=== PATIENT | female | born 1970 | race Caucasian/White ===

== ENCOUNTER 2018-09-25 00:52 | Outpatient (CLI) | payer BC, SELFPAY ==
--- NOTE | 2018-09-25 07:34 | DI.MAMMO_ITS ---
SYMPTOM/DIAGNOSIS: SCREENING MAMMOGRAMS: Mammograms were interpreted according to the usual protocol including computer analysis with CAD system, tomosynthesis and C view imaging. Comparison with prior examinations. No suspicious masses or microcalcifications are seen. There is no definite evidence of malignancy. Breast density C. There is asymmetric breast tissue in the medial left breast which appears more prominent compared to prior examinations. This is best appreciated on the cranial caudad view. Spot compression views recommended. Ultrasound may be indicated at that time. IMPRESSION: Additional views of the left breast as described above. Category 0, breast density C. [facility] ASSESSMENT OF FINDINGS: Incomplete: Needs additional imaging evaluation. Category 0. Patient will receive a letter notifying them of these results. Bi-RADS category C. The breasts are heterogeneously dense, which may obscure small masses.
== END 2018-09-25 01:12 ==
PROVIDERS: PCP Neuromusculoskeletal Medicine & OMM; Visit Provider Advanced Practice Midwife
DX: Z12.31 Encounter for screening mammogram for malignant neoplasm of breast (principal); R92.8 Other abnormal and inconclusive findings on diagnostic imaging of breast
CPT/HCPCS: 77063; 77067

== ENCOUNTER 2018-10-03 00:55 | Outpatient (CLI) | payer BC, SELFPAY ==
--- NOTE | 2018-10-03 09:05 | DI.MAMMO_ITS ---
SYMPTOM/DIAGNOSIS: F/U MAMMO, ASYMMETRIC BREAST TISSUE MEDIAL LT BREAST LEFT BREAST ADDITIONAL VIEWS: Additional images are interpreted according to the usual protocol including tomosynthesis and 2D imaging. A spot compression view was performed of the medial left breast for an area of asymmetric tissue. No persistent abnormality is seen on the additional view performed. The findings are consistent with overlying fibroglandular tissue. IMPRESSION: Category 1, negative mammogram. Yearly screening mammography is recommended. [facility] ASSESSMENT OF FINDINGS: Negative. Category 1. Patient will receive a letter notifying them of these results. Bi-RADS category C. The breasts are heterogeneously dense, which may obscure small masses.
== END 2018-10-03 01:15 ==
PROVIDERS: PCP Neuromusculoskeletal Medicine & OMM; Visit Provider Advanced Practice Midwife
DX: Z12.31 Encounter for screening mammogram for malignant neoplasm of breast (principal); R92.8 Other abnormal and inconclusive findings on diagnostic imaging of breast; N64.59 Other signs and symptoms in breast
CPT/HCPCS: 77063; 77067

== ENCOUNTER 2020-08-29 04:20 | Outpatient (CLI) | payer BC, SELFPAY ==
--- NOTE | 2020-08-29 | DI.MAMMO_ITS ---
Exam(s) MAMMO SCREENING EXAM: MAMMO SCREENING CLINICAL HISTORY: SCREENING, Z12.31 TECHNIQUE: Mammograms were interpreted according to the usual protocol including computer analysis w [employer] CAD system, tomosynthesis and C-view imaging. COMPARISON: 2011 through 2018 FINDINGS: The breasts are composed of heterogeneously dense fibroglandular densities, Breast Density category C . No suspicious masses or suspicious microcalcifications are seen. No skin thickening or abnormal axillary lymph nodes are seen. There has been no significant change from prior exams. IMPRESSION: BI-RADS Category 1, Negative mammogram. Yearly screening mammography is recommended. Breast Density Category C, heterogeneously Dense. The mammogram demonstrates the patient's breast tissue is dense. Dense breast tissue is very common a nd is not abnormal but dense breast tissue can make it harder to find cancer on a mammogram. Also, de nse breast tissue may increase breast cancer risk. This information about the result of the mammogram report was provided to the patient to raise their awareness. Use this report when you speak with the patient about their risks for breast cancer, which includes their family history. At that time, you may recommend additional screening tests (Ultrasound or MRI) as they might be useful based on their r isk. A negative radiographic report should not delay biopsy if a dominant or clinically suspicious mass is present. Up to ten percent of cancers are not identified on mammography. A negative report may reinforce clinical impression. Adenosis and dense breasts may obscure an underlying neoplasm. False positive reports average 6 to 10%.
== END 2020-08-29 04:40 ==
PROVIDERS: PCP Neuromusculoskeletal Medicine & OMM; Visit Provider Nurse Practitioner Women's Health
DX: Z12.31 Encounter for screening mammogram for malignant neoplasm of breast (principal)
CPT/HCPCS: 77063; 77067

== ENCOUNTER → 2021-11-05 00:20 | Outpatient (CLI) | payer BC, SELFPAY ==
--- NOTE | 2021-11-05 | DI.US_ITS ---
Exam(s) US PELVIS TRANSVAGINAL EXAM: US PELVIS TRANSVAGINAL CLINICAL HISTORY: DYSMENORRHEA,N94.6 TECHNIQUE: Ultrasound of the pelvis was performed both transabdominal and transvaginal. COMPARISON: US PELVIS TRANSVAG from 09/04/2015 FINDINGS: UTERUS: Measures 5 cm length x 3.8 cm AP x 3.4 cm wide. There are no uterine fibroids. Endometrial thickness measures 3.7 mm. There is small amount of fluid in the fundus aspect of the endometrial canal. CERVIX: Small nabothian cysts noted. RIGHT OVARY: Measures 0.7 x 2.1 x 1.2 cm Follicular cysts measuring up to 11 millimeters LEFT OVARY: Measures 0.3 x 1.9 x 0.8 cm No significant cysts nor masses evident in the left ovary. CUL-DE-SAC: No free fluid evident. IMPRESSION: 1. Small amount of fluid in the fundal aspect of the endometrial canal. Endometrial stripe thickness below this level is 3-4 millimeters. There are no uterine fibroids evident. 2. There is a cyst in the right ovary measuring 1.1 cm probably follicular. 3. No free fluid evident in the adnexal regions and cul-de-sac. DATA REPOSITORY:
--- NOTE | 2021-11-05 | DI.MAMMO_ITS ---
Exam(s) MAMMO SCREENING EXAM: MAMMO SCREENING CLINICAL HISTORY: SCREENING, Z12.31. TECHNIQUE: Bilateral full field digital CC and MLO mammographic images were obtained with 3D tomosyn thesis and utilizing computer aided detection (CAD). COMPARISON: Prior mammograms were reviewed, the most recent being August 2020. FINDINGS: The fibroglandular tissue pattern is again noted be moderately dense. This somewhat decreases the se nsitivity mammogram for finding hidden underlying lesions. There are no new obvious spiculated masses nor malignant appearing microcalcification groups. There is no significant architectural distortion nor skin thickening-retraction. IMPRESSION: Dense bilateral fibroglandular tissue no. No obvious radiographic evidence of malignancy BI-RADS Category 2 - Benign Findings Breast Density - Category C - Heterogeneously dense Breast density Category C or D implies that the patient has dense breast tissue. Dense breast tissue can make it harder to find cancer on a mammogram. Dense breast tissue is also associated with an incr eased risk of breast cancer. This information about the result of the mammogram report was provided to the patient to raise their awareness. Use this report when you speak with the patient about their risks for breast cancer, which includes their family history. At that time, you may recommend additional screening tests (Ultrasoun d or MRI) as these tests may add significant information. A negative radiographic report should not delay biopsy if a dominant or clinically suspicious mass is present. Up to ten percent of cancers are not identified on mammography. A negative report may reinforce clinical impression. Adenosis and dense breasts may obscure an underlying neoplasm. False positive reports average 6 to 10%. Patient will receive a letter notifying them of these results.
--- OUTSIDE RECORDS SUMMARY | 2021-11-05 00:22 | XMS_ITS | Clinical Summary ---
:1970 Author Organization [facility] Address [address] [place] [address] Care Team Providers Name Role Phone Thor Middleton DO Primary Care Provider Allergies Active Allergy Reactions Severity Noted Date Comments Sulfa (Sulfonamide Antibiotics) Swelling 6 Swelling of lips Medications Medication Sig Dispensed Refills Start Date End Date Status cholecalciferol, Vitamin Take 1,000 0 Active D3, 1,000 unit tablet Units by mouth daily. cyanocobalamin 500 mcg Take 500 mcg by 0 Active tablet mouth daily. escitalopram oxalate Take 10 mg by 0 Active (LEXAPRO) 10 mg tablet mouth daily. omeprazole (PRILOSEC) 20 Take 10 mg by 0 Active mg capsule mouth daily. norethindrone (MICRONOR) Take 1 Tab by 0 Active 0.35 mg tablet mouth daily. Saccharomyces boulardii Take 250 mg by 0 Active (FLORASTOR) 250 mg mouth 2 times capsule daily. Active Problems Problem Noted Date Microscopic hematuria 09/16/2015 Gastric reflux 08/19/2015 Surgical History Surgery Date Site/Laterality Comments CHOLECYSTECTOMY Medical History Medical History Date Comments Abnormal Pap smear of cervix states in 2 0's, underwent cryotherarpy Social History Tobacco Use Types Packs/Day Years Used Date Current Every Day Smoker Cigarettes 1 20 Sex Assigned at Date Recorded Not on file Obstetrics History Grav Para Term Pre Abrt (TAB) (SAB) (Ect) Mult Lvng Comments 1 1 1 Date Outcome GA Total Labor/2nd/3rd Weight Sex Delivery Anes PTL [place] A 1 A5 Name Clin Labor TAB Last Filed Vital Signs Vital Sign Reading Time Taken Comments Blood Pressure 122/84 12/02/2015 1018 EDT Pulse 93 09/16/2015 1057 EDT Temperature - - Respiratory Rate - - Oxygen Saturation - - Inhaled Oxygen Concentration - - Weight 68 kg (150 lb) 08/19/2015 1028 EDT Height 165.1 cm (5' 5) 08/19/2015 1028 EDT Body Mass Index 24.96 08/19/2015 1028 EDT Plan of Treatment Health Maintenance Due Date Last Done Comments Pneumococcal Immunization (1 of 2 - PPSV23) 1976 Care Teams Physical Education Professor Relationship Specialty Start Date End Date Thor Middleton DO PCP - General 07/23/[address] [place] [id number]
--- OUTSIDE RECORDS SUMMARY | 2021-11-05 00:22 | XMS_ITS | Encounter Summary ---
:1970 Author Organization [facility] [place] [address] Care Team Providers Name Role Phone Thor Middleton DO Primary Care Provider Reason for Visit Reason Comments Other new GI work up Encounter Details Date Type Department Care Team Description 08/29/2012 Office Visit Gastroenterology at [facility] Elvi Feldman, GERD [facility] Leda valles APRN ([place] [address] [place] [address] reflux disease) [phone] CENTER (Primary Dx) [place] [address] Social History Tobacco Use Types Packs/Day Years Used Date Current Every Day Smoker Sex Assigned at Date Recorded Not on file documented as of this encounter Last Filed Vital Signs Vital Sign Reading Time Taken Comments Blood Pressure 118/70 08/29/2012 7:46 AM EDT Pulse 80 08/29/2012 7:46 AM EDT Temperature - - Respiratory Rate - - Oxygen Saturation - - Inhaled Oxygen Concentration - - Weight 59 kg (130 lb) 08/29/2012 7:46 AM EDT Height 165.1 cm (5' 5) 08/29/2012 7:46 AM EDT Body Mass Index 21.63 08/29/2012 7:46 AM EDT documented in this encounter Progress Notes Elvi Feldman RN - 08/29/2012 8:03 AM EDT Section of Gastroenterology and Hepatology [address] [place] [id number] .Jazmin Reddy : 1970 Patient is here for further evaluation of gastrointestinal symptoms at the request of Thor Braxton. HPI: Intermittent epigastric pain. Began in fall 2011. No changes at time of onset. Describes the pain as a knot. Intensity varies. Recently radiating straight to her back. Unable to identify aggravating factors. Upper endoscopy in June 2012 showed gastritis and confirmed on biopsy. Negative ttg and h pylori. After the upper endoscopy she was placed on daily ppi and changed her diet. She notes herpain is beginning to improve. Long hx of heartburn. Daily. Was using prevacid otc prn. Prior to this was using protonix qd but hadto stop due to insurance changes. Regurgitation, acid taste. With daily prevacid otc pt continues with breakthrough but sx not as intense. No dysphagia, odynophagia, n/v, ent concerns. Abdominal CT 06/2012, [facility], normal. Weight dropped when sx were at their worst. She was as low as 118 pounds. Today she is 130 pounds. No chronic nsaids. No food allergies. When her sx began she had constipation. She increased her fiber and fluids with good effect. No blood in stool. No rectal bleeding. Since her cholecystectomy certain foods may trigger cramping, urgency. No incontinence or lower abdominal pain. History Social History ??? Marital Status: Spouse Name: N/A Number of Children: N/A ??? Years of Education: N/A Occupational History ??? Not on file. Social History Main Topics ??? Smoking status: Current Everyday Smoker ??? Smokeless tobacco: Not on file ??? Alcohol Use: Not on file ??? Drug Use: Not on file ??? Sexually Active: Not on file Other Topics Concern ??? Not on file Social History Narrative ??? No narrative on file Medical History:depression, gerd/gastritis Surgical History:cholecystectomy Family History: father: pt f/u with me by email, father had colon cancer. Will need to find out further details about age and need for pt's colo Allergies Allergen Reactions ??? Sulfa (Sulfonamide Antibiotics) Lips swollen Current outpatient prescriptions:escitalopram (LEXAPRO) 10 mg tablet, Take 5 mg by mouth daily., Disp: , Rfl: ; norethindrone (EFRAIN-BE) 0.35 mg tablet, Take 1 tablet by mouth daily., Disp: , Rfl: ; cholecalciferol, Vitamin D3, 400 unit tablet, Take 400 Units by mouth daily., Disp: , Rfl: ; B-complex with vitamin C tablet, Take 1 tablet by mouth daily., Disp: , Rfl: [id number] 0.5-15-60-90 mg Cap, Take by mouth., Disp: , Rfl: ; lansoprazole (PREVACID) 15 mg capsule, Take 15 mg by mouth daily., Disp: , Rfl: ; DISCONTD: citalopram (CELEXA) 20 mg tablet, , Disp: , Rfl: Review of Systems - Negative except General: Cardiac: Resp: GI: see above : MS: Neuro: Skin: Psyche: depression, controlled Sleep: Endo: Impression: 1. Epigastric pain due to gerd/gastritis: Nexium 40mg qd, 30 minutes before breakfast. gerd diet andlifestyle modifications. If sx do not improve, consider increasing ppi and/or further testing. Pt tocall gi with progress. I spent a total of 53 minutes face to face with this patient; 33 minutes were spent counseling the patient in the medical problems described above. Sincerely, Elvi Feldman NP Section of Gastroenterology and Hepatology documented in this encounter Plan of Treatment Not on filedocumented as of this encounter Visit Diagnoses Diagnosis GERD (gastroesophageal reflux disease) - Primary Esophageal reflux documented in this encounter Care Teams Car Sales Consultant Relationship Specialty Start Date End Date Thor Middleton DO PCP - General 07/05/[address] [place] [phone] documented as of this encounter
--- OUTSIDE RECORDS SUMMARY | 2021-11-05 00:22 | XMS_ITS | Encounter Summary ---
:1970 Author Organization [facility] Address [address] [place] [address] Care Team Providers Name Role Phone Thor Middleton DO Primary Care Provider Encounter Details Date Type Department Care Team Description 09/04/2015 Results Only Imaging [facility]- Unknown, [facility] Provider, Social History Tobacco Use Types Packs/Day Years Used Date Current Every Day Smoker Cigarettes 1 20 Sex Assigned at Date Recorded Not on file documented as of this encounter Plan of Treatment Pending Results Name Type Priority Associated Diagnoses Date/Ti me RAD OUTSIDE CD - US BODY Imaging 20:05 EDT documented as of this encounter Visit Diagnoses Not on filedocumented in this encounter Care Teams Power Brake Operator Relationship Specialty Start Date End Date Thor Middleton DO PCP - General 07/23/[address] [place] [id number] documented as of this encounter
--- OUTSIDE RECORDS SUMMARY | 2021-11-05 00:22 | XMS_ITS | Encounter Summary ---
:[address] [facility] Address [address] [place] [address] Care Team Providers Name Role Phone Thor Middleton DO Primary Care Provider Reason for Referral (3 - 10 Business Days) - Closed Specialty Diagnoses / Procedures Referred By Contact Refer red To Contact Diagnoses Microhematuria Adrenal cyst ([facility]) ([facility]) Brigette Gomez PA-C Procedures SECONDARY READ BODY CT [address] [facility], [address] [place] [phone] Referral ID Status Reason Start Date Expiration Date Visits Requ ested Visits Authorized [id number] Closed 12/02/2015 1 1 Reason for Visit Reason Comments Urinary Frequency Encounter Details Date Type Department Care Team Description 12/02/2015 Office Visit [facility] Brigette Gomez Micro hematuria (Primary Dx); Pelvic Medicine and [facility] Adrenal cyst ([facility]); Reconstructive Surgery [address] Uri nary frequency; - Medical Office [address] Microscopic hematuria; Building [facility] Dysuria; [facility] el 4 Pelvic pain in female [address] [place], [place] [address] [facility] [phone] [place] [address] Social History Tobacco Use Types Packs/Day Years Used Date Current Every Day Smoker Cigarettes 1 20 Sex Assigned at Date Recorded Not on file documented as of this encounter Last Filed Vital Signs Vital Sign Reading Time Taken Comments Blood Pressure 122/84 12/02/2015 1018 EDT Pulse - - Temperature - - Respiratory Rate - - Oxygen Saturation - - Inhaled Oxygen Concentration - - Weight - - Height - - Body Mass Index - - documented in this encounter Progress Notes Brigette Gomez PA - 12/02/2015 1357 EDT Subjective: Patient ID: Jazmin Naik is an 45 y.o. female. Chief Complaint Patient presents with ??? Urinary Frequency HPI Flavio Naik is a 45-year-old woman who returns today for followup, initially seen in August for the following complaints: ?? In summary, when seen earlier this month she was noted to have been treated on several occasions forurinary tract infections by her local doctor. She did indeed have culture positive infections on 2 occasions but more recently had grown out urovaginal armond. Workup on the day of our initial visit included the following: A urinalysis was positive for 2+ blood and confirmed as greater than 50 RBCs on microscopic evaluation. Cytology was negative, but showed many squams. Urine culture was not performed as she did not have any leukocyte esterase or white blood cells. Urine was sent off for atypical organisms, ureaplasma and mycoplasma were both negative. Given her complaint of urinary frequency, a transvaginal ultrasound was performed, which showed only a very small uterine fibroid. Prior to seeing me, she had had a KUB done by her local physician, which showed questionable evidence of a ureteral stone. At the time of her transvaginal ultrasound, the report notes that a renal ultrasound was done that showed apparently normal kidneys. ?? Given that Jazmin was found to have microhematuria, we did set her up for a cystoscopy, which was done by Dr Kerr prior to this appointment. This was negative for any lesions within her bladder. We did have Jazmin complete a 2-day voiding diary, which she brings with her today. This reveals that onmost days she drinks several cups of coffee, which amounts to about 18 ounces of coffee in the day and then all day long, drinks water, which totaled about 60 ounces of water. Her voiding diary shows that she is in the bathroom approximately hourly. Of note, much of the water that she drinks also is noted to be flavored water. She denies having had any symptoms of a urinary tract infection or dysuriasince our last visit. She does continue to smoke approximately a pack a day with a 37-dhly-euaa history. ?? After we last saw her, we did order a CT urogram for her microscopic hematuria. This showed only reported 2.5 cm. adrenal cyst. It also reported a potential ovarian cyst with recommendations to follow up with a transvaginal ultrasound; however, a transvaginal ultrasound had been done about 2 weeks prior and there was no mention of this cyst. Since we last saw each other Jazmin has been participating in pelvic floor physical therapy and states this really has significantly improved her symptoms of urinary frequency as well as pelvic pain. She has had no symptoms nor diagnoses of urinary tract infections since our last visit, She states that her urinary frequency is much improved as is her leakage. Her menstrual cycles at this time are doing fine on her progesterone only pill. She does continue to smoke a bit, but she is working hard at smoking cessation. Patient Active Problem List Diagnosis ??? Gastric reflux ??? Microscopic hematuria Past Medical History Diagnosis Date ??? Abnormal Pap smear of cervix states in 's, underwent cryotherarpy Past Surgical History Procedure Laterality Date ??? Cholecystectomy No family history on file. Social Social History Substance Use Topics ??? Smoking status: Current Every Day Smoker Packs/day: 1.00 Years: 20.00 Types: Cigarettes ??? Smokeless tobacco: None ??? Alcohol use None Current Outpatient Prescriptions on File Prior to Visit Medication Sig Dispense Refill ??? cholecalciferol, Vitamin D3, 1,000 unit tablet Take 1,000 Units by mouth daily. ??? cyanocobalamin 500 mcg tablet Take 500 mcg by mouth daily. ??? escitalopram oxalate (LEXAPRO) 10 mg tablet Take 10 mg by mouth daily. ??? norethindrone (MICRONOR) 0.35 mg tablet Take 1 Tab by mouth daily. ??? omeprazole (PRILOSEC) 20 mg capsule Take 10 mg by mouth daily. ??? Saccharomyces boulardii (FLORASTOR) 250 mg capsule Take 250 mg by mouth 2 times daily. No current facility-administered medications on file prior to visit. Allergies Allergen Reactions ??? Sulfa (Sulfonamide Antibiotics) Swelling Swelling of lips Review of Systems - See HPI Objective: Visit Vitals ??? BP 122/84 (BP Cuff Location: Right arm, Patient Position: Sitting, BP Cuff Sizes: Adult, regular) ??? LMP 11/25/2015 Physical Exam Talk only Assessment: Concern for recurrent UTI, pelvic pain and urinary frequency. Plan: Jazmin was seen today for urinary frequency. Diagnoses and all orders for this visit: Microhematuria Orders: - POCT Urine Dipstick - SECONDARY READ BODY CT Adrenal cyst Orders: - SECONDARY READ BODY CT Jazmin seems to be doing very well after participating in pelvic floor physical therapy, which she continues to do. She states they even had obtained a new biofeedback machine in the office just for her needs. She will continue to work on smoking cessation, which I think will also help her urinary symptoms. She has had no further evidence of symptoms of urinary tract infections since our last visit, so no further workup or modality is necessary for that. I did get a UA today, but this was a clean catch and she states that she is having some light menstrual bleeding, so I am not concerned about any blood that was seen in her urine. I will order a secondary read of her CAT scans that made mention ofan adrenal cyst versus an ovarian cyst and if it does show an ovarian cyst that seems to be new since her last ultrasound and we will consider repeating an ultrasound in a few months to ensure resolution of this. At this time I think I can see Jazmin back in 6 to 12 months or as needed if she should have any further questions or concerns. I spent a total of 15 minutes in face to face time with this patient today and 15 minutes of that time was spent counseling the patient on reviewing her response to physical therapy. Discussion of testresults, plan. VALERIO Bean documented in this encounter Plan of Treatment Not on filedocumented as of this encounter Procedures Procedure Name Priority Date/Time Associated Diagnosis Comme nts SECONDARY READ Routine 12/05/2015 15:59 Microhematuria Results for this BODY CT EDT Adrenal cyst ([facility]) proce dure are in the results section. POCT URINE Routine 12/02/2015 10:33 Microhematuria Results f or this DIPSTICK, CLINITEK EDT procedure are in the results section. documented in this encounter Results SECONDARY READ BODY CT (12/05/2015 15:59 EDT) Anatomical Region Laterality Modality Other Specimen Narrative [facility] - 12/05/2015 16:45 EDT [address] BODY [address] ??12/05/2015 3:59 PM Signs and Symptoms/Comments: ?? R31.2-Other microscopic [id number] E27.8-Other specified disorders of adrenal [id number]; Routi ne/Other-Please Explain in the Next Question; Confirm finding of ri ght adrenal cyst vs right [facility]BD/PELVIS W/CONTRAST...W/FINAL REPORT.. . Technique: CT of the abdomen and pelvis was performed without and following the administration intravenous contrast at venous phase and 7 minutes delays; coronal and sagitt al multiplanar reconstructions generated. Study perform ed on 09/19/2015 Comparison: Pelvic ultrasound dated 09/03 ?? Findings: Lower chest: There is a tiny nodule at t he right lung base, immediately cephalic to the dome of the liver (image 3 venous phase). Hepatobiliary: Status post cholecystecto my. There is mild intrahepatic and extrahepatic biliary di latation likely postcholecystectomy. There is no focal h epatic lesion. Spleen, pancreas, adrenal glands: The sp suzanna, pancreas and adrenal glands are unremarkable. Kidneys, ureters, bladder: There are no urinary tract calcifications. There is no hydronephros is. There are no renal masses. Both ureters are well opacified without focal thickening or abnormality. The urinary bladder is unre markable. Uterus, ovaries: The anteverted uterus i s unremarkable. Bilateral follicles are present. There is a right ovarian cyst measuring 2.8 cm. Bowel: Unremarkable Peritoneal cavity / Subperitoneal space: Unremarkable Lymphovascular: No suspicious lymph node identified. Normal aorta and IVC. Abdominal wall: Unremarkable Musculoskeletal: Degenerative disc disea se at L4-L5 with endplate sclerosis. Impression: 2.8 cm right ovarian cyst. It is most li jeanne a functional cyst. It was not present on the most recent ultra sound although several follicles are present. It is not viewed with concern in a premenopausal patient. No adrenal abnormality. No genitourinary abnormality on CT. Procedure Note Nicole Deluna MD - 12/05/[address] 12/05/2015 3:59 PM Signs and Symptoms/Comments: R31.2-Other microscopic [id number] E27.8-Other specified disorders of adrenal [id number]-REL-[id number]; Routi ne/Other-Please Explain in the Next Question; Confirm finding of ri ght adrenal cyst vs right ovarian cyst.[facility]BD/PELVIS W/CONTRAST...W/FINAL REPORT.. . Technique: CT of the abdomen and pelvis was performed without and following the administration intravenous contrast at venous phase and 7 minutes delays; coronal and sagitt al multiplanar reconstructions generated. Study perform ed on 09/19/2015 Comparison: Pelvic ultrasound dated 09/03 Findings: Lower chest: There is a tiny nodule at t he right lung base, immediately cephalic to the dome of the liver (image 3 venous phase). Hepatobiliary: Status post cholecystecto my. There is mild intrahepatic and extrahepatic biliary di latation likely postcholecystectomy. There is no focal h epatic lesion. Spleen, pancreas, adrenal glands: The sp suzanna, pancreas and adrenal glands are unremarkable. Kidneys, ureters, bladder: There are no urinary tract calcifications. There is no hydronephros is. There are no renal masses. Both ureters are well opacified without focal thickening or abnormality. The urinary bladder is unre markable. Uterus, ovaries: The anteverted uterus i s unremarkable. Bilateral follicles are present. There is a right ovarian cyst measuring 2.8 cm. Bowel: Unremarkable Peritoneal cavity / Subperitoneal space: Unremarkable Lymphovascular: No suspicious lymph node identified. Normal aorta and IVC. Abdominal wall: Unremarkable Musculoskeletal: Degenerative disc disea se at L4-L5 with endplate sclerosis. Impression: 2.8 cm right ovarian cyst. It is most li jeanne a functional cyst. It was not present on the most recent ultra sound although several follicles are present. It is not viewed with concern in a premenopausal patient. No adrenal abnormality. No genitourinary abnormality on CT. Performing Organization Address City/State/ZIP Code Phon e Number [facility] (ABNORMAL) POCT URINE DIPSTICK (12/02/2015 10:33 EDT) Color YELLOW [facility] Clarity, UA Clear [facility] Glucose Neg Neg [facility] Bilirubin Neg Neg [facility] Ketones Neg Neg [facility] Specific [place] 1.015 1.001 - 1.035 [facility] Blood 2+ (A) Neg [facility] pH 7.0 4.6 - 8.0 [facility] Protein Neg [facility] Urobilinogen 0.2 0.2 - 1.0 [facility] Nitrite Neg Neg [facility] Leuk Esterase Neg [facility] global climate change researcher ID [id number]: [facility] Test performed at LABORATORY the [facility] Specimen Urine (substance) - Urine Performing Organization Address City/State/ZIP Code Phon e Number [facility] [address] [place] [address] SERVICES documented in this encounter Visit Diagnoses Diagnosis Microhematuria - Primary Microscopic hematuria Adrenal cyst ([facility]) (HCC) Other specified disorders of adrenal gla nds Urinary frequency Microscopic hematuria Dysuria Pelvic pain in female Unspecified symptom associated with fema le genital organs documented in this encounter Care Teams Bowl Attendant Relationship Specialty Start Date End Date Thor Middleton DO PCP - General 07/23/[address] [place] [id number] documented as of this encounter
--- OUTSIDE RECORDS SUMMARY | 2021-11-05 00:22 | XMS_ITS | Encounter Summary ---
:1970 Author Organization [place] [address] Care Team Providers Name Role Phone Thor Middleton DO Primary Care Provider Encounter Details Date Type Department Care Team Description 12/29/2012 Telephone G[place]ology [place] [facility] Karen Wells, RN [facility] [place] [address] Social History Tobacco Use Types Packs/Day Years Used Date Current Every Day Smoker Sex Assigned at Date Recorded Not on file documented as of this encounter Miscellaneous Notes Telephone Encounter - Karen Mcdermott RN - 12/29/2012 3:56 PM EDT Pt called with symptom update. Epigastric pain. Left hand side where ribs come together.Not terribly painful, subsided, but came back. Occasionally feels something is stuck in her throat, especially when taking pills. Not one symptom of heartburn, chest pain gone., occasionally reflux, not as severe or frequent as before. Has only one caffinated beverage per day Talked about the effect of alcohol on stomach issues, understands, states she has an occasional beer. Omeprazole 40 mg 30 minutes before breakfast. Please advise. documented in this encounter Plan of Treatment Not on filedocumented as of this encounter Visit Diagnoses Not on filedocumented in this encounter Care Teams Lumber Material Handler Relationship Specialty Start Date End Date Thor Middleton DO PCP - General 07/05/[address] [place] [phone] documented as of this encounter
--- OUTSIDE RECORDS SUMMARY | 2021-11-05 00:22 | XMS_ITS | Encounter Summary ---
:1970 Author Organization [facility] Address [address] [place] [address] Care Team Providers Name Role Phone Thor Middleton DO Primary Care Provider Encounter Details Date Type Department Care Team Description 12/05/[address] [facility] Brigette Gomez Women's Services - [facility] [address] [address] [address], [place] [address] (Wo rk) Social History Tobacco Use Types Packs/Day Years Used Date Current Every Day Smoker Cigarettes 1 20 Sex Assigned at Date Recorded Not on file documented as of this encounter Plan of Treatment Not on filedocumented as of this encounter Visit Diagnoses Not on filedocumented in this encounter Care Teams Title Clerk Automobile Relationship Specialty Start Date End Date Thor Middleton DO PCP - General 07/23/[address] [place] [id number] documented as of this encounter
--- OUTSIDE RECORDS SUMMARY | 2021-11-05 00:22 | XMS_ITS | Encounter Summary ---
:1970 Author Organization [facility] Address [address] [place] [address] Care Team Providers Name Role Phone Thor Middleton DO Primary Care Provider Reason for Referral Radiology Services (3 - 10 Business Days) - Closed Specialty Diagnoses / Procedures Referred By Contact Refer red To Contact Diagnoses Pelvic pain in female Brigette Gomez, Procedures RAD US PELVIS TRANSVAGINAL ONLY PA-C [address] [place] [address], [address] [place] [phone] Referral ID Status Reason Start Date Expiration Date Visits Requ ested Visits Authorized [id number] Closed 08/19/2015 1 1 Reason for Visit Reason Comments Urinary Tract Infection Consult (Routine) - Closed Specialty Diagnoses / Procedures Referred By Contact Refer red To Contact Pelvic Medicine Diagnoses Dysuria Pain, pelvic, female Iglesia Ramirez PA [facility] Pelvic Medicine [address] [place] [phone] [address] [facility] [place] [address] Phone: Fax: Referral ID Status Reason Start Date Expiration Date Visits Requ ested Visits Authorized [id number] Closed 1 1 Encounter Details Date Type Department Care Team Description 08/19/2015 Office Visit [facility] Brigette Gomez (Primary Dx); Pelvic Medicine and [facility] Vaginal discharge; Reconstructive Surgery [address] [place] Eben roscopic hematuria; - Medical Office [address] Pelvic pain in female Building [facility], [facility] Casper Casarez [address] [phone] [place] [address] [phone] Social History Tobacco Use Types Packs/Day Years Used Date Current Every Day Smoker Cigarettes 1 20 Sex Assigned at Date Recorded Not on file documented as of this encounter Last Filed Vital Signs Vital Sign Reading Time Taken Comments Blood Pressure 113/79 08/19/2015 1028 EDT Pulse 83 08/19/2015 1028 EDT Temperature - - Respiratory Rate - - Oxygen Saturation - - Inhaled Oxygen Concentration - - Weight 68 kg (150 lb) 08/19/2015 1028 EDT Height 165.1 cm (5' 5) 08/19/2015 1028 EDT Body Mass Index 24.96 08/19/2015 1028 EDT documented in this encounter Progress Notes Brigette Gomez PA - 08/19/2015 1054 EDT Subjective: Patient ID: Jazmin Naik is an 45 y.o. female. Chief Complaint Patient presents with ??? Urinary Tract Infection HPI Jazmin Naik is a 45 y.o. woman referred by her pcp for a recent history of recurrent UTI, and/or irritative voiding symptoms, possibly consistent with interstitial cystitis and also wondering if she has vulvodynia. She states that prior to recent events, she had some UTI's maybe 20 years ago but these had stopped and have not been a problem up until, in past 3 years she now has again developed recurrent UTI. Notes that when she had been diagnosed with these, the presenting symptoms are classic: dysuria, urge to go but inability to go, and gross hematuria. On review of the records that she brought with her, she has been treated with macrobid for a UTI on 03/05/2013, 02/04/2014, 04/29/2014, 07/29/2014, 11/29/2014 and 06/17/2015. I've contacted her pcp office, and it sounds as though cultures have been done on 2 occasions, on 06/17/15 and 01/2014 she grew out E. Coli which was resistant to TMP-SMX, ampicillin and amp-sulbactam. More recently, on 07/10 she grew out gram positive armond, the UA on that day was negative for nitrites or leukocyte esterace, it showed 3+ blood. . She does affirm, on questioning that her symptoms and UTIs do seem to occur post coitally, often after going a way for a long weekend or on vacation with her partner. Denies any practices that would be higher risk for introducing bacteria (anal intercourse, use of sex toys), states monogamous relationship. Notes that when does not have an infection, will have complaint frequency. Fluid intake consists of couple cups of coffee in theh morning, then 4-5 cups of water in an 8 hour day, then bottle water at home and some alcohol on the weekends. . She did previously had a mirena IUD, and feels as though hersymptoms were not as significant when that was in place, but she had difficulty with insertion, there fore is now on Ludmila Be, which was started when her IUD was removed. She furthermore reports lower pelvic/suprapubic pain/pressure that is present on most days. Her periods are generally regular and monthly. She has completed Pelvic pain and urgency/frequency symptom scale, on which she indicates that she goes to the bathroom 7-10 times during the day, and one time at night. She occasioanlly has pain during or after intercourse, this is mild. She does complain of urgency. She smokes a pack of cigarettes per day, for 20 years. Patient Active Problem List Diagnosis ??? Gastric reflux Past Medical History Diagnosis Date ??? Abnormal Pap smear of cervix states in 20's, underwent cryotherarpy Past Surgical History Procedure Laterality Date ??? Cholecystectomy No family history on file. Social History Substance Use Topics ??? Smoking status: Current Every Day Smoker -- 1.00 packs/day for 20 years Types: Cigarettes ??? Smokeless tobacco: Not on file ??? Alcohol Use: Not on file No current outpatient prescriptions on file prior to visit. No current facility-administered medications on file prior to visit. Allergies Allergen Reactions ??? Sulfa (Sulfonamide Antibiotics) Swelling Swelling of lips Review of Systems - See HPI Objective: BP 113/79 mmHg Pulse 83 Ht 165.1 cm (65) Wt 68.04 kg (150 lb) BMI 24.96 kg/m2 Physical Exam Constitutional: She is oriented to person, place, and time. She appears well- developed and well-nourished. No distress. HENT: Head: Normocephalic and atraumatic. Eyes: Pupils are equal, round, and reactive to light. Neck: Normal range of motion. No thyromegaly present. Cardiovascular: Normal rate, regular rhythm and normal heart sounds. Exam reveals no gallop and no friction rub. No murmur heard. Pulmonary/Chest: Effort normal and breath sounds normal. No respiratory distress. She has no wheezes. She has no rales. Right breast exhibits no inverted nipple, no mass, no nipple discharge, no skin change and no tenderness. Left breast exhibits no inverted nipple, no mass, no nipple discharge, no skin change and no tenderness. Breasts are symmetrical. There is no breast swelling. Breast bleeding isabsent. Abdominal: Soft. Bowel sounds are normal. She exhibits no distension. There is no tenderness. There is no rebound. Genitourinary: Vagina normal and uterus normal. There is no rash, tenderness, lesion or injury on the right labia. There is no rash, tenderness, lesion or injury on the left labia. No vaginal erythema,tenderness or bleeding. No signs of injury around the vagina. No vaginal discharge found. Right adnexum displays no mass, no tenderness and no fullness. Left adnexum displays no mass, no tenderness andno fullness. Cervix exhibits no motion tenderness, no discharge and no friability. Uterus is not deviated, not enlarged, not fixed and not tender. Bladder scan PVR is minimal. Musculoskeletal: Normal range of motion. Lymphadenopathy: She has no cervical adenopathy. She has no axillary adenopathy. Neurological: She is alert and oriented to person, place, and time. Skin: Skin is warm and dry. No erythema. No pallor. Psychiatric: She has a normal mood and affect. Her behavior is normal. Judgment and thought content normal. Assessment: Concern for recurrent UTI. Urinary urgency. Pelvic pain. Plan: Jazmin was seen today for urinary tract infection. Diagnoses and all orders for this visit: Dysuria Orders: - POCT Urine Dipstick; Standing Other orders - cholecalciferol, Vitamin D3, 1,000 unit tablet; Take 1,000 Units by mouth daily. - cyanocobalamin 500 mcg tablet; Take 500 mcg by mouth daily. - escitalopram oxalate (LEXAPRO) 10 mg tablet; Take 10 mg by mouth daily. - omeprazole (PRILOSEC) 20 mg capsule; Take 10 mg by mouth daily. - norethindrone (MICRONOR) 0.35 mg tablet; Take 1 Tab by mouth daily. - Saccharomyces boulardii (FLORASTOR) 250 mg capsule; Take 250 mg by mouth 2 times daily. As an initial evaluation for Jazmin's above complaints, we have done the followin. Carefully reviewed her records of recurrent UTI as they have been documented over the last coupleof years. As above, she has been treated for 1 urinary tract infection so far in 2015. She was treated for 3 urinary tract infections in 2014 and prior to that, treated for 1 urinary tract infection [id number] and 1 in 2012. She currently would not necessarily meet the criteria for recurrent UTIs, but she is concerned that this is a sign of there being a medical concern. We discussed that many of these seem to occur in a postcoital state therefore would start with prophylactic measures such as ensuringthat she empties her bladder after intercourse and generally discussed good hygiene. What is noted is that most recently when she developed symptoms, her UA did not necessarily support a UTI and therefore, we considered other possible causes for her symptoms such as a vaginitis or even interstitial cystitis, or a simple vaginal or pelvic irritation following intercourse. Additionally, we did perform a yeast vaginal culture to ensure no underlying yeast vaginitis that could be contributing to her symptoms as well as did cultures for Ureaplasma and mycoplasma to rule out the possibility of atypical organisms. 2. Her UA today does show 2+ blood and I see that she has had initial workup of a KUB recently, which by report showed a small kidney stone. I will obtain a copy of this report. We did discuss that it would be optimal to perform a catheterized urine specimen, but Jazmin was a bit overwhelmed by everything that was discussed at this visit today and therefore was resistant to do so. We did send this off and it was positive for 10 to 50 RBCs but also squamous cells. She is not currently on her period nor at the beginning or end of it. Therefore, it seems reasonable that this likely is true microscopichematuria. Therefore, we will bring her back for a cystoscopy, given the hematuria along with the fact that she is a smoker. Following this, will also plan to proceed with a CT urogram for the evaluation of hematuria. 3. With regards to her pelvic pain, I did order a transvaginal ultrasound to rule out the possibility of any uterine or adnexal masses. 4. I sent her home with a 3-day voiding diary to ask her to keep track of her fluid intake as well as her voiding pattern and symptoms. We will review this with her when she returns for her followup appointment at the end of August. Initially, we discussed that it sounds as though she does drink quite a bit of caffeine throughout the day, which is likely a bladder irritant and be contributing to her urinary frequency and she is also a smoker. I strongly encouraged her to stop smoking as this is a bladder irritant that can also contribute to her symptoms. We will see her back on September 15 for a cystoscopy as well as for ongoing assessment of her symptoms and proceeding with workup as above. VALERIO Kwok documented in this encounter Plan of Treatment Scheduled Orders Name Type Priority Associated Diagnoses Order S chedule CYTOLOGY Pathology Routine Microscopic hematuria Ordere d: 08/19/2015 (NON-GYNECOLOGIC INCLUDING FLUIDS AND FINE NEEDLE ASPIRATION)- ORDER ONLY RAD US PELVIS Imaging Routine Pelvic pain in female Order ed: 08/19/2015 TRANSVAGINAL ONLY documented as of this encounter Procedures Procedure Name Priority Date/Time Associated Diagnosis Comme nts UREAPLASMA PCR Routine 08/19/2015 14:11 Dysuria Results for this EDT Pelvic pain in procedure are in female the results section. MYCOPLASMA HOMINIS Routine 08/19/2015 14:11 Pelvic pain in Res ults for this PCR-TEMP UNAVALABLE EDT female procedure are in Vaginal discharg e the results Dysuria section. FUNGUS CULTURE/SMEAR Routine 08/19/2015 14:10 Vaginal discharg e Results for this EDT procedure are i n the results section. URINE SEDIMENT Routine 08/19/2015 11:50 Microscopic Results f or this (MICRO) WITHOUT EDT hematuria procedure ar e in REFLEX TO CULTURE the result s section. CHLAMYDIA/N. Routine 08/19/2015 11:49 Dysuria Results for this GONORRHOEAE EDT procedure are i n AMPLIFIED RNA the results section. POCT URINE DIPSTICK, Routine 08/19/2015 11:04 Dysuria Res ults for this CLINITEK EDT procedure are i n the results section. POCT TEST, Routine 08/19/2015 10:55 Pelvic pain in R esults for this VISUAL READ EDT female procedure are i n the results section. documented in this encounter Results MYCOPLASMA HOMINIS PCR (08/19/2015 14:11 EDT) Specimen Source VAGINAL SWAB [facility] SERVICES Mycoplasma hominis Negative Not Applicable [facility] PCR Comment: [facility] (Note) SERVICES ADDITIONAL INFORMATION ------ Laboratory developed test. Performed or Referred by: [facility], [address] [place] [address], Lab Dir: Alfonso madrigal II, M.D., Ph.D. Specimen Other (qualifier value) - Other Performing Organization Address [facility] Phon e Number [facility] [address] [place] [address] SERVICES UREAPLASMA PCR (08/19/2015 14:11 EDT) Specimen Source VAGINAL SWAB [facility] SERVICES Ureaplasma Negative Not Applicable [facility] Urealyticum PCR [facility] Ureaplasma Parvum Negative Not Applicable [facility] PCR Comment: [facility] (Note) SERVICES ADDITIONAL INFORMATION ------ Laboratory developed test. Performed or Referred by: [facility], [address] [place] [id number], Lab Dir: Alfonso madrigal II, M.D., Ph.D. Specimen Other (qualifier value) - Other Performing Organization Address [facility] Phon e Number [facility] [address] [place] [address] SERVICES FUNGUS CULTURE/SMEAR, OTHER (08/19/2015 14:10 EDT) Pathologist Sig nature Fungal Smear No fungi seen [facility] SERVICES Result No fungi isolated [facility] Specimen Other (qualifier value) - Vagina Performing Organization Address City/[facility]/ZIP Code Phon e Number [facility] [address] [place] [address] SERVICES (ABNORMAL) URINE MICROSCOPIC ONLY (08/19/2015 11:50 EDT) WBC, UA less than 1 0 - 5 /HPF [facility] SERVICES RBC, UA 10 to 50 0 - 5 /HPF [facility] SERVICES Squam Epithel, UA Frequent (A) None seen [facility] /[facility] Renal Epithel, UA None seen None seen [facility] /[facility] Bacteria, UA None seen None seen [facility] /[facility] Crystals, UA None seen /HPF [facility] SERVICES Hyaline Casts, UA None seen /LPF [facility] UA Comment Microscopic results [facility] Comment: LABORATORY are unreliable on SERVICES urines unrefrig >2hrs or refrig >8hrs. Mucus, UA Present [facility] SERVICES Specimen Urine (substance) - Urine Performing Organization Address City/[facility]/ZIP Code Phon e Number [facility] [address] [place] [address] SERVICES CHLAMYDIA/GC AMPLIFIED (08/19/2015 11:49 EDT) Chlamydia Result No Chlamydia [facility] trachomatis DNA LABORATORY detected by SERVICES statistical programmer analyst mediated amplification. GC Result No Neisseria [facility] gonorrhoeae DNA LABORATORY detected by SERVICES statistical programmer analyst mediated amplification. Specimen Other (qualifier value) - Endocervix Performing Organization Address City/State/ZIP Code Phon e Number [facility] [address] [place] [address] SERVICES (ABNORMAL) POCT URINE DIPSTICK (08/19/2015 11:04 EDT) Color YELLOW [facility] SERVICES Clarity, UA Clear [facility] Glucose Neg Neg [facility] SERVICES Bilirubin Neg Neg [facility] Ketones Neg Neg [facility] SERVICES Specific [place] 1.015 1.001 - 1.035 [facility] SERVICES Blood 2+ (A) Neg [facility] SERVICES pH 6.0 4.6 - 8.0 [facility] SERVICES Protein Neg Neg [facility] SERVICES Urobilinogen 0.2 0.2 - 1.0 [facility] E.U./dl LABORATORY SERVICES Nitrite Neg Neg [facility] SERVICES Leuk Esterase Neg Neg [facility] pigment and lacquer mixer ID [id number]: [facility] Test performed at LABORATORY the [facility] Specimen Urine (substance) - Urine Performing Organization Address City/State/ZIP Code Phon e Number [facility] [address] [place] [address] SERVICES POCT URINE TEST (08/19/2015 10:55 EDT) Pathologist Sig nature Test, Urine, POC Negative . POINT OF CARE Control Line Present Yes POINT OF CARE Background Clear? Yes POINT OF CARE Specimen Urine (substance) Performing Organization Address City/State/ZIP Code [facility]on [facility] POINT OF CARE documented in this encounter Visit Diagnoses Diagnosis Dysuria - Primary Vaginal discharge Leukorrhea, not specified as infective Microscopic hematuria Pelvic pain in female Unspecified symptom associated with fema le genital organs documented in this encounter Historical Medications This list may reflect changes made after this encounter. Medication Sig Dispensed Refills Start Date End Date Saccharomyces boulardii Take 250 mg by 0 (FLORASTOR) 250 mg capsule mouth 2 times daily. norethindrone (MICRONOR) Take 1 Tab by mouth 0 0.35 mg tablet daily. omeprazole (PRILOSEC) 20 mg Take 10 mg by mouth 0 capsule daily. escitalopram oxalate Take 10 mg by mouth 0 (LEXAPRO) 10 mg tablet daily. cyanocobalamin 500 mcg Take 500 mcg by 0 tablet mouth daily. cholecalciferol, Vitamin D3, Take 1,000 Units by 0 1,000 unit tablet mouth daily. added in this encounter Care Teams Human Resource Manager Relationship Specialty Start Date End Date Thor Middleton DO PCP - General 07/23/[address] [place] [address] documented as of this encounter
--- OUTSIDE RECORDS SUMMARY | 2021-11-05 00:22 | XMS_ITS | Encounter Summary ---
:1970 [place] [address] Care Team Providers Name Role Phone Thor Middleton DO Primary Care Provider Encounter Details Date Type Department Care Team Description 07/15/2014 External Results [facility] non Provider, [facility] [place] [place] [phone] Social History Tobacco Use Types Packs/Day Years Used Date Current Every Day Smoker Sex Assigned at Date Recorded Not on file documented as of this encounter Plan of Treatment Not on filedocumented as of this encounter Procedures Procedure Name Priority Date/Time Associated Diagnosis Comme nts NERVE CONDUCTION, EACH NERVE; MOTOR Routine 02/14/2014 W [facility]WAVE [facility]UDY [facility] documented in this encounter Results NERVE CONDUCTION, EACH NERVE; MOTOR W [facility]-WAVE STUD[facility] (02/14/2014) Narrative This result has an attachment that is no t available. Historical Provider MD NERVOUS SYSTEM SERVICES [facility] documented in this encounter Visit Diagnoses Not on filedocumented in this encounter Care Teams Signal Inspector Relationship Specialty Start Date End Date Thor Middleton DO PCP - General 07/05/12 [address] [place] [phone] documented as of this encounter
--- OUTSIDE RECORDS SUMMARY | 2021-11-05 00:22 | XMS_ITS | Encounter Summary ---
:1970 [place] [address] Care Team Providers Name Role Phone Thor Middleton DO Primary Care Provider Encounter Details Date Type Department Care Team Description 06/13/2014 Orders Only Radiology Iglesia Lau PA [address] [place] [phone] Social History Tobacco Use Types Packs/Day Years Used Date Current Every Day Smoker Sex Assigned at Date Recorded Not on file documented as of this encounter Plan of Treatment Not on filedocumented as of this encounter Procedures Procedure Name Priority Date/Time Associated Diagnosis Comme nts FILM LIBRARY Routine 06/13/2014 9:13 AM Results f or this STORAGE ONLY MR EST procedure ar e in SPINE the results section. documented in this encounter Results Film Library- Storage only MR Spine (06/13/2014 9:13 AM EST) Anatomical Region Laterality Modality Other Specimen (Source) Anatomical Collection Method Collection Time Re ceived Time Location / / Volume Laterality 06/13/2014 9:13 AM EST Narrative 06/17/2014 9:13 AM EST This is a Non-reportable exam Procedure Note BLANK, UNSIGNED REPORT - 06/17/2014Formatt ing of this note might be different from the original. This is a Non-reportable exam Iglesia LUO José Miguel FILM LIBRARY ORDERABLES documented in this encounter Visit Diagnoses Not on filedocumented in this encounter Care Teams Tin Flopper Relationship Specialty Start Date End Date Thor Middleton DO PCP - General 07/05/[address] [place] [phone] documented as of this encounter
--- OUTSIDE RECORDS SUMMARY | 2021-11-05 00:22 | XMS_ITS | Encounter Summary ---
:1970 Author Organization [facility] Address [address] [place] [address] Care Team Providers Name Role Phone Thor Middleton DO Primary Care Provider Encounter Details Date Type Department Care Team Description 09/09/2015 Documentation Visit [facility] Stephanie Gomez Pelvic Medicine and [facility] [place] Reconstructive Surgery [address] [facility] [place] [address] [address] [place], [place] [address] [phone] Social History Tobacco Use Types Packs/Day Years Used Date Current Every Day Smoker Cigarettes 1 20 Sex Assigned at Date Recorded Not on file documented as of this encounter Progress Notes Brigette Gomez PA - 09/09/2015 0949 EDT Outside transvaginal ultrasound report received, probable 7mm fundal fibroid, otherwise unremarkable. Will review with pt at her follow up appointment. documented in this encounter Plan of Treatment Not on filedocumented as of this encounter Visit Diagnoses Not on filedocumented in this encounter Care Teams Furniture Builder Relationship Specialty Start Date End Date Thor Middleton DO PCP - General 07/23/[address] [place] [phone] documented as of this encounter
--- OUTSIDE RECORDS SUMMARY | 2021-11-05 00:22 | XMS_ITS | Encounter Summary ---
:[address] [facility] Address [address] [place] [address] Care Team Providers Name Role Phone Thor Middleton Cole Primary Care Provider Encounter Details Date Type Department Care Team Description 08/19/2015 Results Only [facility] Brigette Gomez, Women's Services - [address] [address] [address], [place] [address] (Wo rk) Social History Tobacco Use Types Packs/Day Years Used Date Current Every Day Smoker Cigarettes 1 20 Sex Assigned at Date Recorded Not on file documented as of this encounter Plan of Treatment Not on filedocumented as of this encounter Procedures Procedure Name Priority Date/Time Associated Diagnosis Comme nts CYTOPATHOLOGY Routine 08/19/2015 0:00 EDT Results for this procedure are i n the results section . documented in this encounter Results CYTOPATHOLOGY (08/19/2015 0:00 EDT) Pathology Report: CYTOPATHOLOGY REPORT [facility] Reports generated via electronic interface contain roney ginal data; SERVICES however they are lacking the format of the original re port. Caution should be taken when reading/interpreting unfo rmatted reports. Name: ? JAZMIN NAIK ? Accession #: ? [id number] : ? 1970 (Age: 45) ??F ?Collect Date: ? 2015 Location: ? [facility] ? Receive Date: ? 08/20/2015 Provider: ? BRIGETTE LUO Copy to: ? CYTOLOGIC DIAGNOSIS: URINE, VOIDED, CYTOLOGIC EVALUATION: - No malignant cells identified. - Mainly vulvovaginal squamous cells noted. - Very rare urothelial cells observed, may not be full y office services representative. Document reviewed and electronically signed by: ? AUSTEN THOMAS MD [facility] Report Date: ??08/21/2015 17:18 By the signature above, the attending physician certif ies that he/she has personally conducted a gross and/or microscopic examin ation of the described specimens and rendered or confirmed the above diagnosi s. Specimen Type: ? Urine, Voided Clinical History: ? Microscopic hematuria; clinical diagnosis code: ??R31. 2 ? Gross Description: ? 40 cc of clear yellow fluid were received and pr ocessed by selective cellular enhancement technique. ? End of Report Specimen Performing Organization Address City/State/ZIP Code Phon e Number [facility] [address] [place] [address] SERVICES documented in this encounter Visit Diagnoses Not on filedocumented in this encounter Care Teams Software Developer Intern Relationship Specialty Start Date End Date Thor Middleton DO PCP - General 07/23/[address] [place] [phone] documented as of this encounter
--- OUTSIDE RECORDS SUMMARY | 2021-11-05 00:22 | XMS_ITS | Encounter Summary ---
:1970 [place] [address] Care Team Providers Name Role Phone Thor Middleton DO Primary Care Provider Reason for Visit Reason Onset Date Comments Medication Refill 08/31/2012 Encounter Details Date Type Department Care Team Description 08/31/2012 Refill Gastroenterology at [facility] Eliv Feldman APRN [facility] [place] [address] GASTROENTEROLOGY DEPT. [phone] [place], [place] [address] (Wo rk) Social History Tobacco Use Types Packs/Day Years Used Date Current Every Day Smoker Sex Assigned at Date Recorded Not on file documented as of this encounter Plan of Treatment Not on filedocumented as of this encounter Visit Diagnoses Not on filedocumented in this encounter Care Teams Station Cook Relationship Specialty Start Date End Date Thor Middleton DO PCP - General 07/05/[address] [place] [phone] documented as of this encounter
--- OUTSIDE RECORDS SUMMARY | 2021-11-05 00:22 | XMS_ITS | Encounter Summary ---
:1970 Author Organization Health system Address [address] [place] [address] Care Team Providers Name Role Phone Thor Middleton DO Primary Care Provider Reason for Referral PT/OT/ST (Routine) - Closed Specialty Diagnoses / Procedures Referred By Contact Refer red To Contact Diagnoses Urinary frequency Brigette Gomez PA-C [address] [place] [address] [address] [place] [phone] Referral ID Status Reason Start Date Expiration Date Visits V isits Requested Authorized [id number] Closed Specialty 10/03/2015 1 1 Services Required Question Answer Reason for Request: Urinary frequency Comments Refer to [facility] [place] [facility] physical th felicita Pollard adjuster electrical contacts Reason for Visit Reason Onset Date Comments Other 10/03/2015 Encounter Details Date Type Department Care Team Description 10/03/2015 Telephone [facility] Pelvic Vicki Gomez, Other Medicine and Reconstructive PA-Radhika Surgery - Medical Office [address] [place] [phone] (Wo rk) Social History Tobacco Use Types Packs/Day Years Used Date Current Every Day Smoker Cigarettes 1 20 Sex Assigned at Date Recorded Not on file documented as of this encounter Miscellaneous Notes Telephone Encounter - Irina So, RN - 10/03/2015 1142 EDT Referral placed to be faxed to [facility] PT documented in this encounter Plan of Treatment Scheduled Referrals Name Type Priority Associated Diagnoses Order S chedule AMB CONS/FOLLOW UP Outpatient Referral Routine Urinary frequen cy Ordered: PHYSICAL THERAPY 10/03/2015 documented as of this encounter Visit Diagnoses Diagnosis Urinary frequency - Primary documented in this encounter Care Teams Upholstery Sewer Relationship Specialty Start Date End Date Thor Middleton DO PCP - General 07/23/[address] [place] [address] documented as of this encounter
--- OUTSIDE RECORDS SUMMARY | 2021-11-05 00:22 | XMS_ITS | Encounter Summary ---
:1970 Author Organization [facility] [place] [address] Care Team Providers Name Role Phone Thor Middleton DO Primary Care Provider Reason for Visit Reason Onset Date Comments Other 10/05/2012 update Encounter Details Date Type Department Care Team Description 10/05/2012 Telephone Gastroenterology at [facility] Elvi Feldman, Sola (update) [facility] [place] [address] [facility] [phone] DR GASTROENTEROLOGY DEPT. [place], [place] [address] (Wo rk) Social History Tobacco Use Types Packs/Day Years Used Date Current Every Day Smoker Sex Assigned at Date Recorded Not on file documented as of this encounter Miscellaneous Notes Telephone Encounter - Yaneth Jesnen RN - 10/05/2012 1:13 PM EDT TC from pt - calling with update of symptoms. Seen by Elvi Feldman APRN on 08/29/12. Placed on Omeprazole 40 mg daily. Pt calling to say that she is still having nausea and abdominal pain, even with the medication and lifestyle changes. Pt asking what else she should do to relieve her symptoms. No appointment scheduled at this time for follow up. Pt asking to be called on her cell phone # [phone]. (Only available at that number until 3:00 PM.) Pt's concerns communicated to Elvi Feldman APRN via In Basket. documented in this encounter Plan of Treatment Not on filedocumented as of this encounter Visit Diagnoses Not on filedocumented in this encounter Care Teams Rental Coordinator Relationship Specialty Start Date End Date Thor Middleton DO PCP - General 07/05/[address] [place] [phone] documented as of this encounter
--- OUTSIDE RECORDS SUMMARY | 2021-11-05 00:22 | XMS_ITS | Encounter Summary ---
:1970 Author Organization [facility] Address [address] [place] [address] Care Team Providers Name Role Phone Thor Middleton DO Primary Care Provider Encounter Details Date Type Department Care Team Description 10/16/2015 Documentation Visit [facility] Stephanie Gomez Gynecologic Oncology - [place] [address] [address] [facility] [phone] [place], [address] [place] [address] (Wo rk) Social History Tobacco Use Types Packs/Day Years Used Date Current Every Day Smoker Cigarettes 1 20 Sex Assigned at Date Recorded Not on file documented as of this encounter Progress Notes Brigette Gomez PA - 10/16/2015 1022 EDT Pt notified of normal CT urogram results, finding of adrenal cyst, but no concerning lesions in urologic system. (of note, an adrenal cyst is mentioned in the body of the report, the impression indicates ovarian cyst, which I think was an error, she had a normal transvaginal ultrasound, so I called [place] [facility] radiology to bring that to their attention to addend their report). Pt has started pelvic PT at [facility] and rehab, and has follow up with me in November to discuss response to pelvic PT. documented in this encounter Plan of Treatment Not on filedocumented as of this encounter Visit Diagnoses Not on filedocumented in this encounter Care Teams Leach Cell Operator Relationship Specialty Start Date End Date Thor Middleton DO PCP - General 07/23/15 [address] [place] [address] documented as of this encounter
--- OUTSIDE RECORDS SUMMARY | 2021-11-05 00:22 | XMS_ITS | Encounter Summary ---
:1970 Author Organization [facility] Address [address] [place] [address] Care Team Providers Name Role Phone Unavailable Primary Care Provider Unavailable Encounter Details Date Type Department Care Team Description 01/07/2000 - Hospital Encounter [facility] Emergency, 01/08/2000 Emergency Department - MD Geraldo [address] [address] Social History Tobacco Use Types Packs/Day Years Used Date Never Assessed Sex Assigned at Date Recorded Not on file documented as of this encounter Discharge Disposition Disposition Code Departure Means Destination Home or Self Care documented in this encounter Plan of Treatment Not on filedocumented as of this encounter Procedures Procedure Name Priority Date/Time Associated Diagnosis Comme nts URINE SEDIMENT Routine 01/08/2000 1:12 EDT Result s for this (MICRO) WITHOUT procedure ar e in REFLEX TO CULTURE the result s section. documented in this encounter Results (ABNORMAL) URINE MICROSCOPIC ONLY (01/08/2000 1:12 EDT) WBC, UA less than 1 0 - 5 /HPF [facility] RBC, UA 1 to 5 0 - 5 /HPF [facility] Squam Epithel, UA Few (A) NS /[facility]PF [facility] Renal Epithel, UA None seen NS /HPF [facility] Bacteria, UA None seen NS /[facility]PF [facility] Crystals, UA None seen /[facility]PF [facility] Hyaline Casts, UA None seen /LPF [facility] UA Comment Microscopic results [facility] are unreliable on LAB urines unrefrig >2hrs or refrig >8hrs. Specimen Performing Organization Address City/State/ZIP Code Phon e Number [facility] [address] [place] [address] SERVICES [facility] [address] [place] [address] documented in this encounter Visit Diagnoses Not on filedocumented in this encounter
--- OUTSIDE RECORDS SUMMARY | 2021-11-05 00:22 | XMS_ITS | Encounter Summary ---
:1970 Author Organization [facility] Address [address] [place] [address] Care Team Providers Name Role Phone Thor Middleton DO Primary Care Provider Reason for Referral Radiology Services (Routine) - Closed Specialty Diagnoses / Procedures Referred By Contact Refer red To Contact Diagnoses Microscopic hematuria Brigette Gomez PA-C Procedures CT UROGRAM [address] [address] Referral ID Status Reason Start Date Expiration Date Visits Requ ested Visits Authorized [id number] Closed 09/16/2015 1 1 Reason for Visit Reason Comments Follow-up urinary frequency Encounter Details Date Type Department Care Team Description 09/16/2015 Office Visit [facility] Center Brigette Gomez Micro scopic hematuria (Primary Dx); Pelvic Medicine and [facility] [place] Urinary frequency Reconstructive Surgery 111 [facility] Medical Office [place] [address] [address] [address] [place] [address] [phone] Social History Tobacco Use Types Packs/Day Years Used Date Current Every Day Smoker Cigarettes 1 20 Sex Assigned at Date Recorded Not on file documented as of this encounter Discharge Diagnoses Diagnosis R31.2 Other microscopic hematuria-R31.2[ ICD-10-CM] R35.0 Frequency of micturition-R35.0[ICD -10-CM] documented in this encounter Discharge Disposition Disposition Code Departure Means Destination Auto Discharge documented in this encounter Progress Notes Brigette Gomez PA - 09/16/2015 3344 EDT Subjective: Patient ID: Jazmin Naik is an 45 y.o. female. Chief Complaint Patient presents with ??? Follow-up urinary frequency HPI Patient Active Problem List Diagnosis ??? Gastric reflux ??? Microscopic hematuria Flavio Naik is a 45-year-old woman who returns today for followup of initial visit earlier this month, on referral for recurrent urinary tract infections versus urinary frequency/overactive bladder and/or interstitial cystitis. In summary, when seen earlier this month [...] was done that showed apparently normal kidneys. Given that Jazmin was found to have [...] approximately a pack a day with a [id number] history. Past Medical History Diagnosis Date ??? Abnormal Pap smear of cervix states in 20's, underwent cryotherarpy Past Surgical History Procedure Laterality Date ??? Cholecystectomy No family history on file. Social History Substance Use Topics ??? Smoking status: Current Every Day Smoker -- 1.00 packs/day for 20 years Types: Cigarettes ??? Smokeless tobacco: Not on file ??? Alcohol Use: Not on file Current Outpatient Prescriptions on File Prior to [...] Review of Systems - See HPI Objective: There were no vitals taken for this visit. Physical Exam Talk only Assessment: Urinary frequency, possible IC vs OAB. Plan: Jazmin was seen today for follow-up. Diagnoses and all orders for this visit: Microscopic hematuria Orders: - CT UROGRAM Today we reviewed with Jazmin, the results of all of her studies. The final piece to her workup for microscopic hematuria by AUA standards would be a CT urogram, therefore, an order was placed for thistoday to rule out renal stones or any cysts or tumors that could be contributing to her hematuria aswell as her symptoms. With regards to her symptoms, we discussed the followin. Should she develop symptoms of dysuria, or any others that makes her think that she has a UTI, weask that she call our office so that we can send an order in for UA, microscopic and culture to track whether or not she truly is having infections. If she is not, then we are more suspicious of interstitial cystitis given that she does have hematuria as well as these symptoms. For this by the currentAUA guidelines, we will start with the algorithm, which is to initially advise her to avoid any bladder irritants; therefore, she was given handouts regarding an IC diet. We also strongly encouraged her to stop smoking as this is a known bladder irritants. We discussed decreasing her caffeine intake as well as avoiding any artificial sweeteners, which may contribute to her symptoms as well. We have talked about a referral to pelvic floor physical therapy. She has a physical therapist that she sees close to her home and therefore, she will ask them if they do pelvic PT there and will call us with the name of that practice and we will then put in a referral. If her physical therapist does not do pelv ic floor PT, then [facility] [place], [place], which she reports is about30 miles from her home. If she is having culture proven infections, as she discussed at our last visit, they do seem to be in the postcoital setting, therefore we will discuss the use of postcoital Macrobid for prevention of UTIs. If she has ongoing symptoms despite physical therapy, then we will lookinto pharmacological therapy including amitriptyline as well as consideration of some cimetidine and/or Vistaril. Finally, if she has no improvement following these first modalities, then would proceedwith a referral for cystoscopy with hydrodistention to further evaluate her complaints. At this time, we will see Jazmin back in approximately 2 to 3 months after she has had a chance to trial pelvic floor physical therapy or she will call our office sooner if she develops symptoms that are worrisome for a UTI. Additionally, we also discussed a possible trial of anticholinergic medications. At this point Jazmin wishes to proceed with pelvic floor physical therapy and hold off on trial of any new medications at this time, but she has no improvement with pelvic PT then will institute a trial of Ditropan. I spent a total of 15 minutes in face to face time with this patient today and 15 minutes of that time was spent counseling the patient on reviewing the results of study, discussion of IC vs OAB, discussing treatment algorhithm . VALERIO Kwok documented in this encounter Plan of Treatment Scheduled Orders Name Type Priority Associated Diagnoses Order S chedule CT UROGRAM Imaging Routine Microscopic hematuria Ordere d: 09/16/2015 documented as of this encounter Visit Diagnoses Diagnosis Microscopic hematuria - Primary Urinary frequency documented in this encounter Care Teams Information Technology Instructor Relationship Specialty Start Date End Date Thor Middleton DO PCP - General 07/23/[address] [place] [phone] documented as of this encounter
--- OUTSIDE RECORDS SUMMARY | 2021-11-05 00:22 | XMS_ITS | Clinical Summary ---
:1970 Author Organization [facility] [place] [address] Care Team Providers Name Role Phone Thor Middleton DO Primary Care Provider Allergies Active Allergy Reactions Severity Noted Date Comments Sulfa (Sulfonamide Antibiotics) High 3 Lips swollen Medications Medication Sig Dispensed Refills Start Date End Date Status escitalopram (LEXAPRO) Take 5 mg by 0 Active 10 mg tablet mouth daily. norethindrone (EFRAIN-BE) Take 1 tablet by 0 Active 0.35 mg tablet mouth daily. cholecalciferol, Vitamin Take 400 Units 0 Active D3, 400 unit tablet by mouth daily. B-complex with vitamin C Take 1 tablet by 0 Active tablet mouth daily. omeprazole (PRILOSEC) 40 Take 40 mg by 0 06/17/2014 Active mg Capsule, Delayed mouth daily. 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 07/11/2014 Overview: C5-6 right GERD (gastroesophageal reflux disease) 08/29/2012 Gastritis 08/29/2012 Social History Tobacco Use Types Packs/Day Years Used Date Current Every Day Smoker Sex Assigned at Date Recorded Not on file Last Filed Vital Signs Vital Sign Reading Time Taken Comments Blood Pressure 119/77 07/11/2014 2:25 PM EDT Pulse 80 08/29/2012 7:46 AM EDT Temperature - - Respiratory Rate - - Oxygen Saturation - - Inhaled Oxygen Concentration - - Weight 67.1 kg (148 lb) 07/11/2014 2:25 PM EDT Height 160 cm (5' 3) 07/11/2014 2:25 PM EDT Body Mass Index 26.22 07/11/2014 2:25 PM EDT Plan of Treatment Health Maintenance Due Date Last Done Comments Covid-19 Vaccine (#1) 1975 HIV screen 1988 Hepatitis C Screening 1988 Tdap adult 1989 Tetanus vaccine 1989 HPV test 2000 PAP Smear 2000 Breast Cancer Share Decision Needed 2010 Colonoscopy 2015 Breast Cancer screening 2020 Zoster vaccine (1 of 2) 2020 Influenza (Flu) vaccine (1 of 1 - Influenza standard 12/17/2021 series) Care Teams Surveillance Director Relationship Specialty Start Date End Date Thor Middleton DO PCP - General 07/05/[address] [place] [phone]
--- OUTSIDE RECORDS SUMMARY | 2021-11-05 00:22 | XMS_ITS | Encounter Summary ---
:1970 Author Organization [facility] Address [address] [place] [address] Care Team Providers Name Role Phone Unavailable Primary Care Provider Unavailable Encounter Details Date Type Department Care Team Description 03/28/2013 Anti-coag visit [facility] Adult Sotero Larry, Primary Care - Farhat RN [address] [place] [phone] Social History Tobacco Use Types Packs/Day Years Used Date Never Assessed Sex Assigned at Date Recorded Not on file documented as of this encounter Plan of Treatment Not on filedocumented as of this encounter Visit Diagnoses Not on filedocumented in this encounter
--- OUTSIDE RECORDS SUMMARY | 2021-11-05 00:22 | XMS_ITS | Encounter Summary ---
:1970 Author Organization [facility] [place] [address] Care Team Providers Name Role Phone Thor Middleton DO Primary Care Provider Reason for Visit Reason Comments Right Arm Pain with numbness in fingers Encounter Details Date Type Department Care Team Description 07/11/2014 [facility] [place] [place] [address] Herniation of cervical Braman Alfonso Velez MD [facility] [place] [place] [address] intervertebral disc with [facility] [place] [id number] Social History Tobacco Use Types Packs/Day Years Used Date Current Every Day Smoker Sex Assigned at Date Recorded Not on file documented as of this encounter Last Filed Vital Signs Vital Sign Reading Time Taken Comments Blood Pressure 119/77 07/11/2014 2:25 PM EDT Pulse - - Temperature - - Respiratory Rate - - Oxygen Saturation - - Inhaled Oxygen Concentration - - Weight 67.1 kg (148 lb) 07/11/2014 2:25 PM EDT Height 160 cm (5' 3) 07/11/2014 2:25 PM EDT Body Mass Index 26.22 07/11/2014 2:25 PM EDT documented in this encounter Progress Notes Alfonso Velez MD - 07/11/2014 3:48 PM EDT Ms. 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 Middleton. She is seen for about a six-week history of pain beginning in her right scapula and now present in the forearm with some numbness and tingling in the right index and long finger. She really has no neck pain. She has no arm pain. Pain right now is not the issue. She did have an episode in January of spasms in the right arm, numbness and tingling in the right index finger, which resolved about 24 to 48 hours. 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 She does note with full extension and full rotation, she gets some tingling in the right arm. Left arm and bilateral legs are asymptomatic. She has no pain at night. She has no problems with gait, balance, or fine motor control. She has no weakness. She reports being otherwise healthy except for GERD. Review of systems is negative for GI, , or constitutional symptoms. She does continue to smoke and I have suggested throughout our discussion today that she throw her cigarettes on the way out to door today and stop because of the adverse impact it is having on her spine health and health in general. She tried gabapentin, this was not tolerated. She does not want to be on Vicodin. She does find some help with Tylenol and ibuprofen. Height is 5 feet 3 inches, weight 148 pounds, body mass index 26.3. This is a somewhat anxious and teary woman who settles down during the visit. She changes position and moves easily about the office with a normal gait. Her cervical spine is normal in appearance and is nontender to palpation. She has no spasm, no scoliosis. She has full rotation of her cervical spine with some mild discomfort in the right arm when rotating to the right. She has full flexion, full extension. Flexion is asymptomatic. Extension does reproduce some discomfort on the forearm to the right index finger. Her upper extremity neurologic exam demonstrates normal motor strength, normal sensory function, and normal reflexes with negative John reflexes and a mildly positive Spurling's maneuver on the right. She has no atrophy, edema, fasciculations, or spasticity. EMG studies by Dr. Rome performed on 02/14/2014, which was the onset of her original symptoms demonstrates findings consistent with a right C5-C6 radiculopathy, which is old, ???chronic or indolent.?? These findings are not suggestive of right median, radial, or ulnar neuropathy or entrapment. IMPRESSION: Likely C6 radiculitis, right side, with overall improvement. The patient is quite anxious about what the specific etiology is and what she should do about it. She reports that she has had multiple answers about what the cause is and is uncertain about what the treatment is. I reviewed the MRI with the patient and her , the C5-C6 level. On the right, it is a little bit more prominent than the other levels and this maybe the etiology of her symptoms. In large part, she is quite comfortable; she is just concerned and anxious that this may represent a worse problem or a debilitating problem similar to apparently what her lclcjlj-rh-ahm has. In any event, I suggested that appropriate use of the ibuprofen and Tylenol would be an order, consideration of physical therapy as long as it is helpful, patience, and the sense that this may take several weeks to resolve, but in all likelihood would resolve. Lastly, I reiterated once again smoking cessation. In the absence of any clinical changes, questions or concerns, I will check as needed. Spine Center Responses History of Present Illness: [facility]- Spine History of Present Illness 07/11/2014 Purpose of Spine appt Another doctor recommended it Length of symptoms 9 to 12 weeks Date of episode 01/16/2014 Prior providers General Practitioner, Other Prior treatments Physical/Occupational Therapy Patient-reported scores: [facility]- Spine Questionnaire responses 07/11/2014 VR36 - Physical Function (Range: 0-100) 50.2 VR36 - Bodily Pain (Range: 0-100) 37.5 VR36 - PCS (Range: 0-100) 45.2 VR36 - MCS (Range: 0-100) 36.3 Neck Disability Index (Range: 0-100) 22 (Mild disability) Anel Austin APRN - 07/11/2014 2:49 PM EDT documented in this encounter Plan of Treatment Not on filedocumented as of this encounter Visit Diagnoses Diagnosis Herniation of cervical intervertebral di sc with radiculopathy Displacement of cervical intervertebral disc without myelopathy documented in this encounter Care Teams Hydrometeorologist Relationship Specialty Start Date End Date Thor Middleton DO PCP - General 07/05/[address] [place] [phone] documented as of this encounter
--- OUTSIDE RECORDS SUMMARY | 2021-11-05 00:22 | XMS_ITS | Encounter Summary ---
:1970 Author Organization [facility] Address [address] [place] [address] Care Team Providers Name Role Phone Thor Middleton DO Primary Care Provider Reason for Visit Reason Comments Hematuria cystoscopy Encounter Details Date Type Department Care Team Description 09/16/2015 Office Visit [facility] Kemal Kerr urinalysis (Primary Dx); Pelvic Medicine and MD Daniella Dysuria; Reconstructive Surgery - [address] [place] [address] roscopic hematuria Medical Office [place] [id number] Medical [address] [place] [address] [facility] [phone] [place] [phone] Social History Tobacco Use Types Packs/Day Years Used Date Current Every Day Smoker Cigarettes 1 20 Sex Assigned at Date Recorded Not on file documented as of this encounter Last Filed Vital Signs Vital Sign Reading Time Taken Comments Blood Pressure 122/85 09/16/2015 1057 EDT Pulse 93 09/16/2015 1057 EDT Temperature - - Respiratory Rate - - Oxygen Saturation - - Inhaled Oxygen Concentration - - Weight - - Height - - Body Mass Index - - documented in this encounter Procedure Notes Kemal Kerr MD - 09/16/2015 1058 EDTProcedure(s): RI CYSTOURETHROSCOPYPre-Procedure Diagnose(s): Microscopic hematuriaPost-Procedure Diagnose(s): Microscopic hematuria Procedure Performed: Cystoscopy Preoperative Diagnosis: Microscopic hematuria Postoperative Diagnosis: Microscopic hematuria The patient was correctly identified and taken into the procedure room. The risks, benefits, complications, treatment options and expected outcomes were discussed with the patient. The patient concurred with the proposed plan, and informed consent was obtained. She received one dose of ciprofloxacin 250 mg po x 1 for antibiotic prophylaxis. The patient was placed into the lithotomy position. The urethral meatus was prepped and draped in the usual sterile fashion. Local anesthesia was achieved with 10cc of 2% lidocaine jelly. A 16 syrian flexible cystoscope was inserted into the anterior urethral meatus and passed into the bladder. The bladder was filled with normal saline without pain. The bladder and urethra were fully inspected with the following findings: Findings: Urethra: without atrophic changes, diverticulae, scarring, stricture or urethritis and with normal coaptation. She was noted to have a small urethral meatus which just accepted the 16F cystoscope and did not require dilation. Bladder: Normal mucosa, ureteral orifices in normal anatomic position, smooth walled, no tumors, stones, petechiae or diverticulae. Plan: Prior microscopy showed 10-50 RBCs/hpf. Prior cytotology negative though had few urothelial cells onvoided specimen. CT urogram is pending. Will send urine culture and repeat cytology. Follow up with VALERIO Bean MD documented in this encounter Plan of Treatment Scheduled Orders Name Type Priority Associated Diagnoses Order S chedule CYTOLOGY (NON-GYNECOLOGIC Pathology Routine Abnormal urinal ysis Ordered: 09/16/2015 INCLUDING FLUIDS AND FINE NEEDLE ASPIRATION)- ORDER ONLY documented as of this encounter Procedures Procedure Name Priority Date/Time Associated Comments Diagnosis BACTERIAL CULTURE, Routine 09/16/2015 10:55 Abnormal urinalysi s Results for this URINE EDT procedure are i n the results section. POCT URINE DIPSTICK, Routine 09/16/2015 10:54 Dysuria Res ults for this CLINITEK EDT procedure are i n the results section. CYTOPATHOLOGY Routine 09/16/2015 0:00 Results for this EDT procedure are i n the results section. documented in this encounter Results BACTERIAL CULTURE, URINE (09/16/2015 10:55 EDT) Pathologist [facility] nature Result Less than 10,000 CFU/ml [facility] Usual urogenital armond. LABORATORY SERVIC ES Specimen Urine (substance) - Urine Performing Organization Address City/[facility]/ZIP Code Phon e Number [facility] [address] [place] [address] SERVICES (ABNORMAL) POCT URINE DIPSTICK (09/16/2015 10:54 EDT) Color YELLOW [facility] Clarity, UA Clear [facility] Glucose Neg Neg [facility] Bilirubin Neg Neg [facility] Ketones Neg Neg [facility] Specific [place] 1.020 1.001 - 1.035 [facility] Blood 2+ (A) Neg [facility] pH 8.0 4.6 - 8.0 [facility] Protein Neg [facility]ATORY SERVICES Urobilinogen 0.2 0.2 - 1.0 [facility] SERVICES Nitrite Neg Neg [facility] Leuk Esterase Trace (A) Neg [facility] food and beverage service manager ID [id number]: [facility] Test performed at LABORATORY the [facility] Specimen Urine (substance) - Urine Performing Organization Address City/[facility]/ZIP Code Phon e Number [facility] [address] [place] [address] SERVICES CYTOPATHOLOGY (09/16/2015 0:00 EDT) Pathology Report: CYTOPATHOLOGY REPORT [facility] Reports generated via electronic interface contain roney ginal data; SERVICES however they are lacking the format of the original re port. Caution should be taken when reading/interpreting unfo rmatted reports. Name: ? JAZMIN NAIK S ? Accession #: ? [id number] : ? 1970 (Age: 45) ??F ?Collect Date: ? 09/15 Location: ? [facility] ? Receive Date: ? 09/16/2015 Provider: ? KEMAL KERR MD Copy to: ? CYTOLOGIC DIAGNOSIS: URINE, VOIDED, CYTOLOGIC EVALUATION: - No malignant cells identified. - Rare urothelial cells present. - Abundant mature squamous cells, consistent with gyne cologic tract. Document reviewed and electronically signed by: ? EMILIANO DICKERSON MD Report Date: ??09/17/2015 14:37 By the signature above, the attending physician certif ies that he/she has personally conducted a gross and/or microscopic examin ation of the described specimens and rendered or confirmed the above diagnosi s. Specimen Type: ? Urine, Voided Clinical History: ? Microscopic hematuria; clinical diagnosis code: ??R82. 90 ? Gross Description: ? 50 cc of clear yellow fluid were received and pr ocessed by selective cellular enhancement technique. ? End of Report Specimen Performing Organization Address City/State/ZIP Code Phon e Number [facility] [address] [place] [address] SERVICES documented in this encounter Visit Diagnoses Diagnosis Abnormal urinalysis - Primary Other nonspecific finding on examination of urine Dysuria Microscopic hematuria documented in this encounter Administered Medications Inactive Administered Medications - up to 3 most recent administrations Medication Order MAR Action Action Date Dose Rate Site ciprofloxacin HCl (CIPRO) tablet 250 Given 09/16/2015 11:30 EDT 250 mg mg 250 mg, oral, NOW X1, 1 dose, On Tue09/16/15 at 1200, Controlled antibiotic, has ID approved? No: Pre-operative surgical prophylaxis, Routine documented in this encounter Orders Medications Ordered That Might Not Have Count Last Ord ered Date First Ordered Date Been Administered ciprofloxacin HCl (CIPRO) tablet 250 mg 1 09/16/19 16 documented in this encounter Care Teams Application Security Engineer Relationship Specialty Start Date End Date Thor Middleton DO PCP - General 07/23/[address] [place] [id number] documented as of this encounter
== END ==
PROVIDERS: PCP Neuromusculoskeletal Medicine & OMM; Visit Provider Advanced Practice Midwife
DX: N94.6 Dysmenorrhea, unspecified (principal); Z12.31 Encounter for screening mammogram for malignant neoplasm of breast; N83.01 Follicular cyst of right ovary; N88.8 Other specified noninflammatory disorders of cervix uteri
CPT/HCPCS: 77063; 77067; 76830; 76856

== ENCOUNTER 2022-11-09 16:29 | Outpatient (REF) | payer BC, SELFPAY | END 2022-11-09 16:30 | disposition home or self-care (01) | LOC: LBN 16:29 | PROVIDERS: PCP Neuromusculoskeletal Medicine & OMM; Visit Provider Advanced Practice Midwife | DX: I10 Essential (primary) hypertension (principal); N89.8 Other specified noninflammatory disorders of vagina; Z01.419 Encounter for gynecological examination (general) (routine) without abnormal findings | CPT/HCPCS: 87480; 87510; 87660 ==

== ENCOUNTER 2022-11-12 00:54 | Outpatient (CLI) | payer BC, SELFPAY ==
--- NOTE | 2022-11-12 07:45 | DI.MAMMO_ITS ---
Exam(s) MAMMO SCREENING EXAM: MAMMO SCREENING CLINICAL HISTORY: screening TECHNIQUE: Bilateral full field digital CC and MLO mammographic images were obtained with 3D tomosyn thesis and utilizing computer aided detection (CAD). COMPARISON: Available for comparison. FINDINGS: Masses/Architectural Distortion: There is a question of a new ovoid density in the medial right breas t. This area should be further evaluated with additional views. Microcalcifications: No suspicious pleomorphic-type are seen. Skin Thickening/Nipple Retraction: None. IMPRESSION: 1. New ovoid density in the medial right breast 4 cm from the nipple. 2. This area should be further evaluated with spot compression views. Limited right breast ultrasoun d may also be indicated at that time. BI-RADS Category 0 - Assessment Incomplete: Need additional imaging evaluation Breast Density - Category C - Heterogeneously dense Breast density category C or D implies that the patient has dense breast tissue. Dense breast tissue is very common and is not abnormal but dense breast tissue can make it harder to find cancer on a ma mmogram. Also, dense breast tissue may increase their breast cancer risk. This information about the result of the mammogram report was provided to the patient to raise their awareness. Use this report when you speak with the patient about their risks for breast cancer, which includes their family hist ory. At that time, you may recommend for more screening tests (Ultrasound or MRI) as they might be us eful based on their risk. A negative radiographic report should not delay biopsy if a dominant or clinically suspicious mass is present. Up to ten percent of cancers are not identified on mammography. A negative report may reinforce clinical impression. Adenosis and dense breasts may obscure an underlying neoplasm. False positive reports average 6 to 10%. Patient will receive a letter notifying them of these results.
== END 2022-11-12 01:14 ==
LOC: DI 00:54
PROVIDERS: PCP Neuromusculoskeletal Medicine & OMM; Visit Provider Advanced Practice Midwife
DX: Z12.31 Encounter for screening mammogram for malignant neoplasm of breast (principal)
CPT/HCPCS: 77063; 77067

== ENCOUNTER 2022-11-19 00:34 | Outpatient (CLI) | payer BC, SELFPAY ==
--- NOTE | 2022-11-19 | DI.MAMMO_ITS ---
Exam(s) MG MAMMO SCREEN CALL BACK UNI US BREAST RT COMPLETE EXAM: MG MAMMO SCREEN CALL BACK UNI-RIGHT AND COMPLETE RIGHT BREAST ULTRASOUND CLINICAL HISTORY: F/U MAMMO/SPOT, NEW OVOID DENSITY RT BREAST. TECHNIQUE: Unilateral spot mammographic images obtained with 3D tomosynthesisand utilizing computer aided detection (CAD). . Complete RIGHT breast Ultrasound was also performed, including all 4 quadrants, the retroareolar lucina on, and the ipsilateral axilla. COMPARISON: Prior mammograms were reviewed. This additional imaging was performed due to findings described on the recent screening mammogram of 11/12/2022.. FINDINGS: DIAGNOSTIC MAMMOGRAM: Additional mammographic views performed todayrender this area less concerning. COMPLETE RIGHT BREAST ULTRASOUND: Ultrasound performed today reveals a solitary finding at the 2 o'clock position.. This has the appea mark anthony of a 9 by 4 mm cyst and most probably corresponds to the finding on the recent screening mammog nicole. There are no solid lesions seen in all 4 quadrants. Scanning of the ipsilateral axilla reveals no significant adenopathy. IMPRESSION: 1. Benign findings as described above. There is a 9 x 4 mm cyst corresponding to the finding on the recent mammogram. Appropriate follow-up is keep this patient on yearly mammogram schedule, with earlier imaging if a s elf detected breast change is noted. The patient was informed of these findings and recommendations by myself prior to leaving the departm ent today. BI-RADS Category 2 - Benign Findings Breast Density - Category C - Heterogeneously dense Breast density Category C or D implies that the patient has dense breast tissue. Dense breast tissue can make it harder to find cancer on a mammogram. Dense breast tissue is also associated with an incr eased risk of breast cancer. This information about the result of the mammogram report was provided to the patient to raise their awareness. Use this report when you speak with the patient about their risks for breast cancer, which includes their family history. At that time, you may recommend additional screening tests (Ultrasoun d or MRI) as these tests may add significant information. A negative radiographic report should not delay biopsy if a dominant or clinically suspicious mass is present. Up to ten percent of cancers are not identified on mammography. A negative report may reinforce clinical impression. Adenosis and dense breasts may obscure an underlying neoplasm. False positive reports average 6 to 10%. Patient will receive a letter notifying them of these results.
== END 2022-11-19 00:54 ==
LOC: DI 00:35
PROVIDERS: PCP Neuromusculoskeletal Medicine & OMM; Visit Provider Advanced Practice Midwife
DX: Z12.31 Encounter for screening mammogram for malignant neoplasm of breast (principal); R92.8 Other abnormal and inconclusive findings on diagnostic imaging of breast
CPT/HCPCS: 76642; 77063; 77067

== ENCOUNTER 2023-06-01 02:58 | Outpatient (CLI) | payer BC, SELFPAY ==
[2023-06-01 17:21] LABS: TSH (W/Ref FT4) 2.32 uIU/mL (0.36-3.74)
[2023-06-02 18:47] LABS: FSH 11.3 mIU/mL (See Note)
== END 2023-06-01 02:59 | disposition home or self-care (01) ==
LOC: LBO 02:59
PROVIDERS: PCP Neuromusculoskeletal Medicine & OMM; Visit Provider Obstetrics & Gynecology
DX: N92.5 Other specified irregular menstruation (principal); N95.1 Menopausal and female climacteric states; I10 Essential (primary) hypertension
CPT/HCPCS: 36415; 83001; 84443

== ENCOUNTER 2023-10-12 15:43 | Outpatient (REF) | payer BC, SELFPAY ==
--- NOTE | 2023-10-12 15:30 | ENDOMET_PTH ---
PATIENT: Jazmin Reynolds LOC: [facility]#:[id number] AGE/SX: 53/F ROOM: RE10/12/[address]: Alyssa You DO : 1970 BED: DIS: 10/12/2023 SPEC #: [id number] RECD: 10/12/23 17:01 STATUS: CAIT REQ #: [id number] CORNELIUS: 10/12/23 15:[address]: Alyssa You DEPT: Surgical Specimen RECD BY: Caitlyn Villeda ENTERED: 10/12/23 17:02 SP TYPE: Endomet OTHR DR: Thor Middleton Tissues: 1 - ENDOMETRIUM BX/CINDY Procedures: GROSS AND MICRO LEVEL 4 Comments: [id number]
== END 2023-10-12 15:44 | disposition home or self-care (01) ==
LOC: LBN 15:43
PROVIDERS: PCP Neuromusculoskeletal Medicine & OMM; Visit Provider Obstetrics & Gynecology
DX: N84.0 Polyp of corpus uteri (principal); D26.0 Other benign neoplasm of cervix uteri
CPT/HCPCS: 88305

== ENCOUNTER 2024-09-06 10:04 | Outpatient (REF) | payer BC, SELFPAY ==
--- NOTE | 2024-09-06 09:30 | PAPFT_PTH ---
PATIENT: Jazmin Reynolds LOC: [facility] U#:[id number] AGE/SX: 54/F ROOM: RE09/06/[address]: Alyssa You DO : 1970 BED: DIS: 09/06/2024 SPEC #: [id number] RECD: 09/06/24 12:58 STATUS: CAIT REQ #: [id number] CORNELIUS: 09/06/24 09:[address]: Alyssa You DEPT: [facility] Cytology RECD BY: Caitlyn Villeda ENTERED: 09/06/24 12:59 SP TYPE: PAPFT OTHR DR: Thor Middleton Tissues: 1 - CX/ENDOCX FOR PAP SMEARS Procedures: PAP THIN PREP/[facility] Screening HPV DNA PROBE Comments: [id number] (HPV 16 & 18/45)
== END 2024-09-06 10:05 | disposition home or self-care (01) ==
LOC: LBN 10:04
PROVIDERS: PCP Neuromusculoskeletal Medicine & OMM; Visit Provider Obstetrics & Gynecology
DX: Z11.51 Encounter for screening for human papillomavirus (HPV) (principal); Z01.419 Encounter for gynecological examination (general) (routine) without abnormal findings
CPT/HCPCS: 88142; 87624

== ENCOUNTER 2024-10-10 00:24 | Outpatient (CLI) | payer BC, SELFPAY ==
--- NOTE | 2024-10-10 14:05 | DI.MAMMO_ITS ---
Exam(s) MAMMO SCREENING EXAM: MAMMO SCREENING CLINICAL HISTORY: screening,Z12.39,ENCOUNTER AUTOMOBILE SERVICE ADVISOR EXAM W/O ABNL FINDINGS,Z01.419 TECHNIQUE: Mammograms were interpreted according to the usual protocol including computer analysis with CAD system, tomosynthesis and C-view imaging. COMPARISON: 2014 through 2022 FINDINGS: The breasts are composed of heterogeneously dense fibroglandular densities, Breast Density category C. No suspicious masses or suspicious microcalcifications are seen. Previously noted right breast nodule seen to be a cyst by ultrasound is not visible on the current exam. No skin thickening or abnormal axillary lymph nodes are seen. IMPRESSION: BI-RADS Category 1, Negative mammogram. Yearly screening mammography is recommended. Breast Density: Category C - The breasts are heterogeneously dense, which may obscure small masses. Breast density Category C or D implies that the patient has dense breast tissue. Dense breast tissue can make it harder to find cancer on a mammogram. Dense breast tissue is also associated with an increased risk of breast cancer. This information about the result of the mammogram report was provided to the patient to raise their awareness. Use this report when you speak with the patient about their risks for breast cancer, which includes their family history. At that time, you may recommend additional screening tests (Ultrasound or MRI) as these tests may add significant information. A negative radiographic report should not delay biopsy if a dominant or clinically suspicious mass is present. Up to ten percent of cancers are not identified on mammography. A negative report may reinforce clinical impression. Adenosis and dense breasts may obscure an underlying neoplasm. False positive reports average 6 to 10%.
== END 2024-10-10 00:44 ==
LOC: DI 00:24
PROVIDERS: PCP Neuromusculoskeletal Medicine & OMM; Visit Provider Obstetrics & Gynecology
DX: Z12.31 Encounter for screening mammogram for malignant neoplasm of breast (principal); Z01.419 Encounter for gynecological examination (general) (routine) without abnormal findings; R92.333 Mammographic heterogeneous density, bilateral breasts
CPT/HCPCS: 77063; 77067

== ENCOUNTER 2024-12-16 13:51 | Emergency (ER) | payer BC, SELFPAY ==
[2024-12-16 13:53] VITALS: BP 166/102; PULSE 107; RESP 18; TEMP 36.6; O2SAT 96
--- NOTE | 2024-12-16 14:10 | W.ED.GENAD ---
Discharge Plan Disposition Patient Disposition: Home Discharge Details Clinical Impression: Bee sting, Facial swelling Primary Care Provider: Thor Middleton ED Provider: Stepan Gloria Home Meds and New Rx's Prescriptions: Continued lisinopril 20 mg tablet 20 mg PO DAILY vitamin B complex [B-Complex] 1 EACH tablet 1 ea PO BID omeprazole magnesium [Prilosec OTC] 20 MG tablet,delayed release (DR/EC) 20 mg PO DAILY escitalopram oxalate [Lexapro] 5 MG tablet 5 mg PO DAILY cholecalciferol (vitamin D3) 25 mcg (1,000 unit) tablet 1,000,000 mcg PO DAILY Discharge Instructions Instructions: Insect allergy, Insect Bites and Stings ED Additional Instructions: Please follow-up with your primary care provider regarding your visit to the emergency department today. Be sure to discuss results of all test performed here today to include radiology, and laboratory testing as well as results for any pending cultures. Should your symptoms worsen, or if you develop new concerning symptoms, please return immediately emergency department for further evaluation. HPI General Date/Time Provider Initiated Documentation: 12/16/24 14:01. HPI Narrative: MDM/Narrative: Initial Assessment: 54-year-old female with bee sting inside mouth. No vomiting, diarrhea, or rashes. Facial swelling noted. History of hypertension, GERD, and depression. Patient took appropriate doses of Benadryl, Zyrtec, famotidine and ibuprofen prior to arrival. Differential Diagnosis: - Anaphylaxis: Low suspicion due to absence of throat swelling, wheezing, diarrhea, or vomiting. Administer steroids. - Localized reaction to bee sting: Administer steroids. ED Course: Administered steroids. Final Assessment: Administered steroids for localized reaction from bee sting. Low suspicion for anaphylaxis. Monitored for symptom progression. Clinical Impression: - Bee sting - Hypertension Disposition: Discharge home. No symptom progression. Advised to return if symptoms worsen. This document was created with assistance from [employer]. The patient consented to its use. HPI: The patient is a 54-year-old female presenting with facial edema secondary to a bee sting inside her oral cavity at 1230 hours. She reports mild dizziness, which she attributes to skipping lunch. The patient suspects she was stung twice. Her sister advised seeking emergency medical care. She denies vomiting, diarrhea, or urticaria. She has been able to consume water without difficulty but has not ingested any food. She denies any symptoms of throat pruritus, edema, or airway obstruction. The insect was identified as a yellow jacket, and the patient removed it from her lip with the stinger intact. She self-administered cetirizine, famotidine, and diphenhydramine. The patient has a history of a similar reaction to sulfonamide antibiotics, resulting in a rash. She is uncertain about a penicillin allergy and reports a possible isolated reaction to wheat bread. Last week, she experienced a hornet sting on her elbow, which she treated with calamine lotion. Her current medications include lisinopril for hypertension (blood pressure readin/106 mmHg), omeprazole for gastroesophageal reflux disease (GERD), and escitalopram (Lexapro) for depression. ROS: Negative besides as mentioned above Exam: Vital signs: Reviewed. General Appearance: Alert and oriented. No acute distress. HEENT: No throat swelling. No stridor, tolerating secretions Neck: Supple, full range of motion, no observable masses, No meningeal sign. Respiratory: Clear breath sounds bilaterally. Cardiovascular: RRR, no edema. Gastrointestinal: Soft, nondistended, No rebound tenderness. Back: No midline tenderness to palpation or palpable step-offs of the C/T/L spine. Skin: Facial swelling noted. Neurological: Normal Gait, Grossly intact. Psychiatric: Appropriate for situation. Related Data Home Medications ?Medication ?Instructions ?Recorded ?Confirmed escitalopram oxalate 5 mg tablet 5 mg PO DAILY 06/28/12 12/16/24 (Lexapro) omeprazole magnesium 20 mg 20 mg PO DAILY 06/28/12 12/16/24 tablet,delayed release (Prilosec OTC) vitamin B complex (B-Complex 1 ea PO BID 06/28/12 12/16/24 tablet) lisinopril 20 mg tablet 20 mg PO DAILY 10/16/21 12/16/24 cholecalciferol (vitamin D3) 25 1,000,000 mcg PO DAILY 11/08/23 12/16/24 mcg (1,000 unit) tablet Allergies Allergy/AdvReac Type Severity Reaction Status Date / Time Sulfa (Sulfonamide Allergy Severe Swelling/Ed Unverified 12/16/24 13:57 Antibiotics) mera Penicillins Allergy Intermediate Rash Verified 12/16/24 13:57 wheat Allergy Hives Verified 12/16/24 13:57 General Stated Complaint: InsectBite GILBERTO: 3 Course Vital Signs Vital signs: Vital Signs Temperature 36.6 C 12/16/24 13:53 Pulse 107 H 12/16/24 13:53 Respiratory Rate 18 12/16/24 13:53 Blood Pressure 166/102 H 12/16/24 13:53 Pulse Oximetry 96 12/16/24 13:53 Temperature 36.6 C 12/16/24 13:53 Pulse 107 H 12/16/24 13:53 Respiratory Rate 18 12/16/24 13:53 Blood Pressure 166/102 H 12/16/24 13:53 Pulse Oximetry 96 12/16/24 13:53 Pain Level 4 12/16/24 13:53 PFSH All Active Problems (Updated 12/16/24 @ 14:16 by Stepan Gloria MD) Facial swelling (Acute) Bee sting (Acute) Stress incontinence (Acute) Perimenopause (Acute) Chronic GERD (Acute) Depression (Chronic) Essential hypertension (Acute) Hx of cholecystectomy (Chronic) Women's annual routine gynecological examination (Acute) Medical History History of abnormal cervical Pap smear 20-22 years ago. Family History Mother Thyroid disease Sister Thyroid cancer Sister Thyroid disease Father Stroke Colon cancer Sister Sarcoidosis Social History Smoking/Tobacco Use Status: Current every day Tobacco: How many years used: 25 Smoking risk assessment performed?: Yes Alcohol Intake: current Alcohol Intake frequency: a few times a month Drug use: Never Substance use type: does not use History History 1 Para Hx # Term Pregnancies Multiple births Hx # Pregnancies Ectopic pregnancies AB induced 1 Hx Number of Living Children AB spontaneous
[2024-12-16] MEDS: methylPREDNISolone SUCC 125 MG VIAL IM (14:29)
[2024-12-16 14:55] VITALS: BP 161/92; PULSE 86; RESP 16; O2SAT 96
== END 2024-12-16 14:56 | disposition home or self-care (01) ==
LOC: ER 14:17
PROVIDERS: Emergency Provider General Practice; PCP Neuromusculoskeletal Medicine & OMM
DX: T63.441A Toxic effect of venom of bees, accidental (unintentional), initial encounter; R22.0 Localized swelling, mass and lump, head
CPT/HCPCS: 99283; 99284; 96372; J2919